=== PATIENT | male | born 1995 | race Caucasian/White ===

== ENCOUNTER 2023-03-03 20:50 | Emergency (ER) | payer OTHER ==
[~2023-03-03] VITALS: Ht 170.2 cm; Wt 73.0 kg
[2023-03-03 21:07] VITALS: BP 127/75; PULSE 74; RESP 15; TEMP 97.3
[2023-03-03] MEDS ORDERED: LIDOCAINE 1% 10 ML VIAL ID ONE (21:30)
[2023-03-03] MEDS ORDERED: IBUPROFEN 400 MG TABLET PO ONE (21:30)
[2023-03-03] MEDS ORDERED: PERTUSS(ACELL),DIPH,TET VAC/PF 0.5 ML SYRINGE IM. ONE (21:30)
[2023-03-03] MEDS ORDERED: AMOX TR/POT CLAV 875 MG/125 MG TABLET PO ONE (22:15)
[2023-03-03] MEDS ORDERED: BACITRACIN 0.9 GM PACKET OINTMENT TP ONE (22:15)
== END 2023-03-03 22:20 ==
LOC: EMS 20:52
DX: S01.112A Laceration without foreign body of left eyelid and periocular area, initial encounter (principal); F17.210 Nicotine dependence, cigarettes, uncomplicated; X58.XXXA Exposure to other specified factors, initial encounter; Y93.89 Activity, other specified; Y92.89 Other specified places as the place of occurrence of the external cause; Y99.8 Other external cause status
CPT/HCPCS: 99283; 90715; 90471; 12011; J3490